=== PATIENT | male | born 1990 | race Caucasian/White ===

== ENCOUNTER 2018-12-26 23:44 | Emergency (ER) | payer OTHER ==
[~2018-12-26] VITALS: Ht 180.3 cm; Wt 120.2 kg
[~2018-12-26 23:44] MED LIST: LEVE500 PO
[2018-12-27] MEDS ORDERED: FYCOMPA6 MG PO (00:07)
[2018-12-27] MEDS ORDERED: LEVE500 PO (00:07)
== END 2018-12-27 03:38 | disposition home or self-care (01) ==
LOC: ER 23:44
DX: T45.0X1A Poisoning by antiallergic and antiemetic drugs, accidental (unintentional), initial encounter (principal); Z88.8 Allergy status to other drugs, medicaments and biological substances; Z79.899 Other long term (current) drug therapy
CPT/HCPCS: 99284

== ENCOUNTER 2019-08-21 22:24 | Emergency (ER) | payer OTHER ==
[~2019-08-21 22:24] MED LIST changes: +FYCOMPA6 MG PO
== END 2019-08-21 23:25 | disposition home or self-care (01) ==
LOC: ER 22:24
DX: G40.909 Epilepsy, unspecified, not intractable, without status epilepticus (principal); S01.512A Laceration without foreign body of oral cavity, initial encounter; Z23 Encounter for immunization; X58.XXXA Exposure to other specified factors, initial encounter
CPT/HCPCS: 90471; 90714; 99284-25